=== PATIENT | male | born 1960 | race Two or more races ===

== ENCOUNTER 2018-04-09 15:29 | Emergency (ER) | payer SELFPAY ==
[~2018-04-09] VITALS: Ht 185.4 cm; Wt 123.8 kg
[2018-04-09 15:47] VITALS: BP 124/98
== END 2018-04-09 18:06 | disposition home or self-care (01) ==
LOC: ER 15:37
DX: M79.89 Other specified soft tissue disorders (principal); E11.9 Type 2 diabetes mellitus without complications; I50.9 Heart failure, unspecified
CPT/HCPCS: 93970

== ENCOUNTER 2018-04-26 12:30 | Inpatient (IN) | payer OTHER ==
[~2018-04-26] VITALS: Ht 185.4 cm; Wt 108.9 kg
[2018-04-26] MEDS ORDERED: DILTIAZEM HCL 25 MG/5 ML VIAL IV ONE (13:45)
[2018-04-26 14:02] LABS: Basophils # (auto) 0 uL; Basophils % (auto) 0.5 % (0.0-2.0); Eosinophils # (auto) 0.1 uL; Eosinophils % (auto) 0.9 % (0.0-7.0); Hemoglobin 15.7 g/dL (13.5-17.5); Lymphocytes # (auto) 3.3 uL; Lymphocytes % (auto) 34.5 % (10.0-50.0); Mean Corpuscular Hemoglobin 31.9 pg (28.0-32.0); Mean Corpuscular Hgb Conc. 32.8 g/dL (32.0-36.0); Mean Corpuscular Volume 97.3 fL (80.0-100.0); Monocytes # (auto) 0.8 uL; Monocytes % (auto) 8.5 % (0.0-12.0); Neutrophils # (auto) 5.3 uL; Neutrophils % (auto) 55.6 % (37.0-80.0); Platelet Count (auto) 195 10^3/uL (140-450); Red Blood Cells 4.94 10^6/uL (4.5-5.90); Red Cell Distribution Width 13.1 % (11.8-14.3); White Blood Cell 9.6 10^3/uL (4.4-10.8)
[2018-04-26 14:22] LABS: Calcium 7.8 mg/dL (8.5-10.1); Magnesium 2.2 mg/dL (1.6-2.6); Potassium 3.8 mmol/L (3.5-5.1)
[2018-04-26 14:23] LABS: BUN/Creatinine Ratio 21.2
[2018-04-26 14:39] LABS: Bilirubin, Total 0.7 mg/dL (0.2-1.0); Total Protein 6.7 g/dL (6.4-8.2)
[2018-04-26] MEDS ORDERED: FUROSEMIDE 40 MG/4 ML VIAL IV ONE (16:15)
[2018-04-26] MEDS ORDERED: DEXTROSE (50%) 50ML SYRG IV PRN (16:30)
[2018-04-26] MEDS ORDERED: NITROGLYCERIN 0.4 MG SL TAB SL PRN (16:30)
[2018-04-26] MEDS ORDERED: TEMAZEPAM 15 MG CAP PO PRN (16:30)
[2018-04-26] MEDS ORDERED: CARVEDILOL 3.125 MG TAB PO SCH (16:30)
[2018-04-26] MEDS ORDERED: LACTULOSE 20Gm/30ML SOLN PO PRN (16:30)
[2018-04-26] MEDS ORDERED: PROMETHAZINE HCL 25 MG/ML 1ML IV PRN (16:30)
[2018-04-26] MEDS ORDERED: LORazepam 0.5 MG TAB PO PRN (16:30)
[2018-04-26] MEDS ORDERED: ACETAMINOPHEN 500 MG TAB PO PRN (16:30)
[2018-04-26] MEDS ORDERED: MORPHINE SULFATE 4 MG/ML SYR/VIAL IV PRN (16:30)
[2018-04-26] MEDS: MORPHINE SULFATE 4 MG/ML SYR/VIAL IV PRN (17:54)
[2018-04-26] MEDS ORDERED: ALBUTEROL SULF 2.5 MG/0.5ML(0.5%) NEB SOLN NEB PRN (19:30)
[2018-04-26] MEDS ORDERED: CARVEDILOL 3.125 MG TAB PO ONE (19:30)
[2018-04-26] MEDS: ACCU-CHEK COMFORT CURVE STRIP VI SCH ×2 (19:47→23:49)
[2018-04-26 19:50] VITALS: BP 119/72
[2018-04-26] MEDS: InsuLIN REG 1unit/0.01ml Soln (100units/ml) SC SCH ×2 (19:54→23:49)
[2018-04-26] MEDS: CARVEDILOL 3.125 MG TAB PO SCH (21:22)
[2018-04-26] MEDS: ATORVASTATIN 20 MG TAB PO SCH (21:32)
[2018-04-26] MEDS: ENOXAPARIN SOD 120 MG/0.8 ML SYRINGE SC SCH (21:32)
[2018-04-26] MEDS: SODIUM CHLOR 0.9% PF (SALINE LOCK) 10ML VIAL/SYR IV SCH (21:32)
[2018-04-26] MEDS: CLINDAMYCIN 600MG IV 50 ML IV SCH (21:32)
[2018-04-26] MEDS: HYDROcodone-ACET 5/325MG TAB PO PRN (23:41)
[2018-04-27] MEDS: ALBUTEROL SULF 2.5 MG/0.5ML(0.5%) NEB SOLN NEB SCH ×4 (00:02→18:53)
[2018-04-27] MEDS: IPRATROPIUM BROM 0.5 MG/2.5ML INH SOL NEB SCH ×4 (00:02→18:53)
[2018-04-27] MEDS: ACCU-CHEK COMFORT CURVE STRIP VI SCH ×6 (04:05→23:45)
[2018-04-27] MEDS: InsuLIN REG 1unit/0.01ml Soln (100units/ml) SC SCH ×6 (04:06→23:45)
[2018-04-27 05:00] VITALS: BP 109/66
[2018-04-27] MEDS ORDERED: TRIA75TA55 PO (05:16)
[2018-04-27] MEDS ORDERED: DOXY-338 PO (05:16)
[2018-04-27] MEDS ORDERED: SITA50TA PO (05:16)
[2018-04-27] MEDS ORDERED: FLUT110A INH (05:16)
[2018-04-27] MEDS ORDERED: ALBU2TAB4 PO (05:17)
[2018-04-27] MEDS: SODIUM CHLOR 0.9% PF (SALINE LOCK) 10ML VIAL/SYR IV SCH ×3 (05:27→22:00)
[2018-04-27] MEDS: CLINDAMYCIN 600MG IV 50 ML IV SCH ×3 (05:39→22:00)
[2018-04-27 05:49] LABS: Cholesterol 106 mg/dL (< 200)
[2018-04-27 05:52] LABS: HDL Cholesterol 24 mg/dL (40-59); LDL Cholesterol 73 mg/dL (< 100); Triglycerides 101 mg/dL (< 150)
--- NOTE | 2018-04-27 07:00 | NUR ---
Telemetry admit from [facility] admitted to Telemetry unit. Patient oriented to Janee Easley, primary RN, unit, room, bed, and unit policies regarding patient care and visiting hours. Patient now on continuous telemetry monitoring, tele box #HC 30 and telemetry reading on arrival to unit is a.fib HR 110. Patient placed on bedside oxygen, weighed by bedscale and encouraged to call if they need something. All questions and concerns addressed, patient verbalized understanding. Note: alert and oriented x 4. on oxygen at 3L via NC,even and unlabored respirations. no s/s of distress. turns and ambulates independently. IV intact and patent. Noted redness to bilateral LE with open wound to right anterior leg. Will continue to monitor.
--- NOTE | 2018-04-27 07:00 | NUR ---
Closing Note patient resting in bed with even and unlabored respirations. oxygen on at 3L via NC. no s/s of distress. Endorsed care to day shift RN.
[2018-04-27] MEDS ORDERED: INFLUENZA QUAD 2018-2019 0.5 ML SYRG IM ONE (07:15)
[2018-04-27] MEDS ORDERED: PNEUMOCOCCAL VACC POLYS 25 MCG/0.5 ML VIAL IM ONE (07:15)
--- NOTE | 2018-04-27 08:05 | NUR ---
Opening Shift Note Assumed care of patient, awake and alert. No S/S of distress/SOB or pain. Instructed on POC and to call for assist PRN, bed in the lowest position, call light with in reach, bed rails up x2, will continue to monitor for changes Q1hr and PRN.
[2018-04-27 08:38] VITALS: BP 104/68
[2018-04-27] MEDS: ENOXAPARIN SOD 120 MG/0.8 ML SYRINGE SC SCH ×2 (09:29→22:01)
[2018-04-27] MEDS: HYDROcodone-ACET 5/325MG TAB PO PRN (09:29)
[2018-04-27] MEDS: POTASSIUM CHL 20 Meq TABLET PO SCH (09:29)
[2018-04-27] MEDS: FUROSEMIDE 40 MG/4 ML VIAL IV SCH (09:29)
[2018-04-27] MEDS: PANTOPRAZOLE 40 MG TAB PO SCH (09:30)
[2018-04-27] MEDS: CARVEDILOL 3.125 MG TAB PO SCH ×2 (09:30→22:01)
[2018-04-27] MEDS: ASPirin 81 mg TAB PO SCH (09:30)
[2018-04-27] MEDS: ENALAPRIL MALEATE 2.5 MG TAB PO SCH (09:31)
[2018-04-27] MEDS: NITROGLYCERIN 0.2MG/HR TOPICAL PATCH TD SCH (09:31)
[2018-04-27] MEDS: LEVOFLOXACIN 500MG 100 ML IV SCH (09:44)
--- NOTE | 2018-04-27 10:40 | NUR ---
Hospitalist at bedside Cristobal aware of patients status including abnormal labs, VS, cardiac rhythm. Awaiting new orders at this time. Will cont to monitor
[2018-04-27] MEDS ORDERED: BUDESONIDE (INHALATION) 0.5 MG/2 ML NEB NEB ONE (10:45)
[2018-04-27] MEDS ORDERED: BUDESONIDE (INHALATION) 0.5 MG/2 ML NEB ONE (10:57)
--- NOTE | 2018-04-27 11:15 | NUR ---
URINE SAMPLE SENT TO LAB
--- NOTE | 2018-04-27 11:15 | NUR ---
IV FOR CTA OF CHEST STARTED ON RIGHT FOREARM 20G. PATENT, INTACT AND FLUSHING. EDUCATION GIVEN
[2018-04-27] MEDS ORDERED: IOHEXOL 350 MG/ML 100ML IJ ONE (11:26)
[2018-04-27 11:58] LABS: Alcohol, Urine < 3.0 mg/dL (0-5); Amphetamine Screen, Urine NEGATIVE (NEGATIVE); Barbiturate Scree,Urine NEGATIVE (NEGATIVE); Benzodiazephine Screen, Urine NEGATIVE (NEGATIVE); Cannabinoid Screen, Urine NEGATIVE (NEGATIVE); Cocaine Screen, Urine NEGATIVE (NEGATIVE); Opiate Scree,Urine NEGATIVE (NEGATIVE); Phencyclidine Screen, Urine NEGATIVE (NEGATIVE)
--- NOTE | 2018-04-27 12:20 | NUR ---
WOUND CARE NOTE: Wound care in to see patient per wound care request regarding " open wound Rt anterior leg" that are noted present on admission. Bedside nurse took photograph of patient's wounds upon admission for reference. Patient is 57 y/o male with admitting diagnosis of CHF. Patient is resting in bed in Rm. 286B. Patient is awake, alert and oriented. Patient is in no stated pain at this time. He reported that he's ambulatory and he's self turn and reposition. His current Indra score is 22. Noted patient's Rt lower leg is erythremic and edematous in comparison to LLE. Dry, intact, scabbed wound noted to proximal benton which patient reported he "accidentally bumped it onto something" Distal aspect of his Rt benton has 3.5x3cm no measurable depth open draining wound with 50% has brown scab and 50% yellow slough, aroldo wound is bright red and edematous, moderate amount of serous drainage noted on old dressing, no odor noted. Patient states that he has had the Rt distal benton wound "since the april" and beth casey seen a doctor for it. Wound culture specimen apparently sent to lab for processing. Patient and family education regarding wound care, verbalized understanding. Cleansed patient's Rt benton wound with wound cleanser, patted dry with sterile gauze, applied Thera honey gel, covered with absorbent pad, wrapped with Kerlix, secured with tape. Wrapped RLE with JORGE LUIS Wrap bandage. Patient denies any other wound noted. Patient tolerated well. RECOMMENDATION: EOD/PRN dressing change to R benton wound per MD order,redistribute pressure points with pillows, elevate edematous extremity on pillows, continue monitoring by wound care while patient is hospitalized. Addendum: 04/27/18 at 1620 by Trixie Louis RN Amended: Links added.
[2018-04-27 13:00] VITALS: BP 125/66
[2018-04-27] MEDS: MORPHINE SULFATE 4 MG/ML SYR/VIAL IV PRN (16:13)
[2018-04-27 16:29] VITALS: BP 106/49
[2018-04-27] MEDS: BUDESONIDE (INHALATION) 0.5 MG/2 ML NEB NEB SCH (18:53)
--- NOTE | 2018-04-27 19:25 | NUR ---
Patient care endorsed endorsed care to pearl fraga. Patient sitting up in bed no s/s of acute distress. Pt denies pain. Call light within reach Addendum: 04/27/18 at 1935 by Zoe Costa RN care endorsed to Keyla fraga
--- NOTE | 2018-04-27 19:27 | NUR ---
RECEIVED PATIENT FROM DAY SHIFT RN. PATIENT SITTING AT THE EDGE OF THE BED. NO S/S OF DISTRESS NOTED. DENIED PAIN FOR NOW. REINFORCED PATIENT NPO AFTER MIDNIGHT FOR POSSIBLE PROCEDURE TOMORROW. POC INSTRUCTED AND ENCOURAGED PATIENT TO CALL FOR EPOXY SPECIALIST IF NEEDED. BED IN LOWEST POSITION WITH SIDE RAILS UPX 2. CALL ZAMBRANO WITHIN REACH. CONTINUE TO MONITOR FOR CHANGES Q1H AND PRN.
--- NOTE | 2018-04-27 20:05 | NUR ---
ACCU-CHECK, BS 102. NO COVERAGE. CONTINUE TO MONITOR.
[2018-04-27 22:01] VITALS: BP 123/63
[2018-04-27] MEDS: ATORVASTATIN 20 MG TAB PO SCH (22:01)
--- NOTE | 2018-04-27 23:05 | NUR ---
REASSESSED BP 119/71, HR 136. CONTINUE TO MONITOR.
[2018-04-27] MEDS: INSULIN LANTUS (GLARGINE) 1 /0.01ml (100units/ml) SC SCH (23:45)
[2018-04-28] MEDS: MORPHINE SULFATE 4 MG/ML SYR/VIAL IV PRN ×3 (00:04→21:45)
--- NOTE | 2018-04-28 00:04 | NUR ---
PATIENT C/O PAIN @ 12/13. MEDICATED PATIENT ORDERED. CONTINUE TO MONITOR.
[2018-04-28] MEDS: IPRATROPIUM BROM 0.5 MG/2.5ML INH SOL NEB SCH ×4 (01:43→18:38)
[2018-04-28] MEDS: ALBUTEROL SULF 2.5 MG/0.5ML(0.5%) NEB SOLN NEB SCH ×4 (01:43→18:39)
--- NOTE | 2018-04-28 02:36 | NUR ---
PATIENT WENT TO BATHROOM, HR UP TO 155, CHECKED PATIENT. NO S/S OF DISTRESS AND SOB NOTED. PATIENT STATED COMFORTABLE. CONTINUE TO MONITOR.
[2018-04-28] MEDS: InsuLIN REG 1unit/0.01ml Soln (100units/ml) SC SCH ×5 (03:36→20:06)
[2018-04-28] MEDS: ACCU-CHEK COMFORT CURVE STRIP VI SCH ×5 (03:36→20:05)
--- NOTE | 2018-04-28 03:36 | NUR ---
ACCU-CHECK, BS 116. NO COVERAGE. CONTINUE TO MONITOR.
[2018-04-28 05:00] VITALS: BP 106/67
[2018-04-28] MEDS: SODIUM CHLOR 0.9% PF (SALINE LOCK) 10ML VIAL/SYR IV SCH ×3 (06:17→21:44)
[2018-04-28] MEDS: CLINDAMYCIN 600MG IV 50 ML IV SCH ×3 (06:17→21:44)
[2018-04-28] MEDS: BUDESONIDE (INHALATION) 0.5 MG/2 ML NEB NEB SCH ×2 (06:21→18:39)
[2018-04-28 07:33] LABS: BUN/Creatinine Ratio 29.8; Calcium 7.9 mg/dL (8.5-10.1); Potassium 4.3 mmol/L (3.5-5.1)
[2018-04-28 09:00] VITALS: BP 110/68
[2018-04-28] MEDS: NITROGLYCERIN 0.2MG/HR TOPICAL PATCH TD SCH (10:00)
[2018-04-28] MEDS: FUROSEMIDE 40 MG/4 ML VIAL IV SCH (10:23)
[2018-04-28] MEDS: CARVEDILOL 3.125 MG TAB PO SCH ×2 (10:24→21:44)
[2018-04-28] MEDS: POTASSIUM CHL 20 Meq TABLET PO SCH (10:24)
[2018-04-28] MEDS: ASPirin 81 mg TAB PO SCH (10:24)
[2018-04-28] MEDS: ENOXAPARIN SOD 120 MG/0.8 ML SYRINGE SC SCH ×2 (10:25→21:45)
[2018-04-28] MEDS: PANTOPRAZOLE 40 MG TAB PO SCH (10:25)
[2018-04-28] MEDS: ENALAPRIL MALEATE 2.5 MG TAB PO SCH (10:26)
[2018-04-28] MEDS: HYDROcodone-ACET 5/325MG TAB PO PRN (10:33)
[2018-04-28] MEDS: LEVOFLOXACIN 500MG 100 ML IV SCH (11:50)
[2018-04-28 13:00] VITALS: BP 98/77
--- NOTE | 2018-04-28 19:26 | NUR ---
RECEIVED PATIENT FROM DAY SHIFT RN. PATIENT RESTING IN BED. NO S/S OF DISTRESS NOTED. C/O PAIN @ 5/10 AFTER RECEIVING PAIN MEDICATION EARLIER. REINFORCED SCHEDULED OF PAIN MANAGEMENT, WILL COME BACK FOR PAIN MEDICATION WHEN THE TIME IS DUE. PATIENT VERBALIZED UNDERSTANDING. POC INSTRUCTED AND ENCOURAGED PATIENT TO CALL FOR BUILDING OPERATOR IF NEEDED. BED IN LOWEST POSITION WITH SIDE RAILS UPX 2. CALL ZAMBRANO WITHIN REACH. CONTINUE TO MONITOR FOR CHANGES Q1H AND PRN.
--- NOTE | 2018-04-28 20:06 | NUR ---
ACCU-CHECK, BS 173. INSULIN GIVEN ORDERED. URINE SAMPLE COLLECTED AND SENT. CONTINUE TO MONITOR.
[2018-04-28 20:33] LABS: Urine Bacteria NONE SEEN /hpf (None Seen); Urine Blood Negative /uL (Negative); Urine Specific Gravity 1.022 (1.001-1.035); Urine WBC 1 /hpf (0 - 3)
[2018-04-28] MEDS: ATORVASTATIN 20 MG TAB PO SCH (21:45)
--- NOTE | 2018-04-28 21:45 | NUR ---
PATIENT C/O PAIN @ 12/13. MEDICATED PATIENT ORDERED. CONTINUE TO MONITOR.
[2018-04-28 21:56] VITALS: BP 109/64
[2018-04-29] MEDS: ALBUTEROL SULF 2.5 MG/0.5ML(0.5%) NEB SOLN NEB SCH ×4 (00:05→19:10)
[2018-04-29] MEDS: IPRATROPIUM BROM 0.5 MG/2.5ML INH SOL NEB SCH ×4 (00:05→19:10)
[2018-04-29] MEDS: InsuLIN REG 1unit/0.01ml Soln (100units/ml) SC SCH ×7 (00:17→23:17)
[2018-04-29] MEDS: ACCU-CHEK COMFORT CURVE STRIP VI SCH ×7 (00:17→23:17)
[2018-04-29] MEDS: INSULIN LANTUS (GLARGINE) 1 /0.01ml (100units/ml) SC SCH ×2 (00:17→23:16)
--- NOTE | 2018-04-29 00:17 | NUR ---
ACCU-CHECK, BS 143. INSULIN GIVEN ORDERED. CONTINUE TO MONITOR.
--- NOTE | 2018-04-29 02:20 | NUR ---
PATIENT WAS FOUND SITTING ON THE CHAIR AND FALLING IN SLEEP WITHOUT OXYGEN. WOKE PATIENT UP AND ASSISTED PATIENT BACK TO BED. PUT OXYGEN BACK. PATIENT TOLERATED WELL. CONTINUE TO MONITOR.
[2018-04-29] MEDS: MORPHINE SULFATE 4 MG/ML SYR/VIAL IV PRN ×5 (04:20→23:16)
--- NOTE | 2018-04-29 04:20 | NUR ---
ACCU-CHECK, BS 202. INSULIN GIVEN ORDERED. MEDICATED PATIENT FOR PAIN @ 12/13. CONTINUE TO MONITOR.
[2018-04-29 05:02] VITALS: BP 100/58
[2018-04-29] MEDS: CLINDAMYCIN 600MG IV 50 ML IV SCH ×2 (05:58→13:57)
[2018-04-29] MEDS: SODIUM CHLOR 0.9% PF (SALINE LOCK) 10ML VIAL/SYR IV SCH ×3 (05:58→21:53)
[2018-04-29 06:21] LABS: Calcium 7.7 mg/dL (8.5-10.1); Potassium 4.3 mmol/L (3.5-5.1)
[2018-04-29 06:25] LABS: BUN/Creatinine Ratio 34.7
[2018-04-29] MEDS: BUDESONIDE (INHALATION) 0.5 MG/2 ML NEB NEB SCH ×2 (07:26→19:10)
--- NOTE | 2018-04-29 07:30 | NUR ---
Report received. Patient sitting at side of bed. Patient is alert and oriented. O2 in place. Patient has no complaints at this time. Call light in reach. Will continue to monitor.
[2018-04-29] MEDS: FUROSEMIDE 40 MG/4 ML VIAL IV SCH (09:53)
[2018-04-29] MEDS: CARVEDILOL 3.125 MG TAB PO SCH ×2 (09:55→21:53)
[2018-04-29] MEDS: ASPirin 81 mg TAB PO SCH (09:56)
[2018-04-29] MEDS: ENOXAPARIN SOD 120 MG/0.8 ML SYRINGE SC SCH ×2 (09:56→21:54)
[2018-04-29] MEDS: POTASSIUM CHL 20 Meq TABLET PO SCH (09:56)
[2018-04-29] MEDS: PANTOPRAZOLE 40 MG TAB PO SCH (09:56)
[2018-04-29] MEDS: NITROGLYCERIN 0.2MG/HR TOPICAL PATCH TD SCH (09:57)
[2018-04-29] MEDS: LEVOFLOXACIN 500MG 100 ML IV SCH (09:58)
[2018-04-29] MEDS: ENALAPRIL MALEATE 2.5 MG TAB PO SCH (09:58)
--- NOTE | 2018-04-29 11:55 | NUR ---
Dr. Cristobal in to see patient as hospitalist.
[2018-04-29] MEDS ORDERED: METOLAZONE 5 MG TAB PO ONE (12:00)
[2018-04-29] MEDS ORDERED: POTASSIUM CHL 20 Meq TABLET PO ONE (12:00)
[2018-04-29 12:47] VITALS: BP 100/58
--- NOTE | 2018-04-29 16:24 | NUR ---
Pharmacist recommending change in antibiotics. Dr. Cristobal informed.
[2018-04-29] MEDS ORDERED: MORPHINE SULFATE 4 MG/ML SYR/VIAL IV PRN (16:30)
--- NOTE | 2018-04-29 19:50 | NUR ---
RECEIVED PATIENT FROM DAY SHIFT RN. PATIENT RESTING IN BED. NO S/S OF DISTRESS NOTED. DENIED PAIN FOR NOW. ACCU-CHECK, BS 196. INSULIN GIVEN ORDERED. REINFORCED PATIENT NPO AFTER MIDNIGHT FOR PROCEDURE TOMORROW. PATIENT VERBALIZED UNDERSTANDING. POC INSTRUCTED AND ENCOURAGED PATIENT TO CALL FOR SUBSTATION OPERATOR CONVERSION IF NEEDED. BED IN LOWEST POSITION WITH SIDE RAILS UPX 2. CALL ZAMBRANO WITHIN REACH. CONTINUE TO MONITOR FOR CHANGES Q1H AND PRN.
[2018-04-29] MEDS: ATORVASTATIN 20 MG TAB PO SCH (21:53)
--- NOTE | 2018-04-29 21:55 | NUR ---
PATIENT LYING IN BED. BP 91/54, ASSISTED PATIENT TO SIT UP AND REASSESSED BP 126/63, HR 97. SCHEDULED MEDICATION GIVEN ORDERED. CONTINUE TO MONITOR.
[2018-04-29 21:59] VITALS: BP 126/63
--- NOTE | 2018-04-29 23:17 | NUR ---
ACCU-CHECK, BS 171. INSULIN GIVEN ORDERED. CONTINUE TO MONITOR.
[2018-04-30] VITALS (7 sets, daily range): BP systolic 101–139; BP diastolic 70–81
[2018-04-30] MEDS: IPRATROPIUM BROM 0.5 MG/2.5ML INH SOL NEB SCH ×4 (00:16→19:06)
[2018-04-30] MEDS: ALBUTEROL SULF 2.5 MG/0.5ML(0.5%) NEB SOLN NEB SCH ×4 (00:16→19:07)
--- NOTE | 2018-04-30 00:30 | NUR ---
PATIENT SITTING AT THE SIDE OF THE BED. NO S/S OF DISTRESS NOTED. REINFORCED NPO FROM NOW. PATIENT VERBALIZED UNDERSTANDING. CONTINUE TO MONITOR.
[2018-04-30] MEDS: InsuLIN REG 1unit/0.01ml Soln (100units/ml) SC SCH ×5 (04:30→20:00)
[2018-04-30] MEDS: ACCU-CHEK COMFORT CURVE STRIP VI SCH ×5 (04:30→20:00)
--- NOTE | 2018-04-30 04:30 | NUR ---
ACCU-CHECK, BS 121. NO COVERAGE. CONTINUE TO MONITOR.
--- NOTE | 2018-04-30 04:43 | NUR ---
EKG DONE ORDERED. PATIENT TOLERATED WELL. CONTINUE CARE.
[2018-04-30] MEDS: MORPHINE SULFATE 4 MG/ML SYR/VIAL IV PRN ×3 (05:04→22:18)
[2018-04-30] MEDS: SODIUM CHLOR 0.9% PF (SALINE LOCK) 10ML VIAL/SYR IV SCH ×3 (05:04→21:55)
[2018-04-30] MEDS: BUDESONIDE (INHALATION) 0.5 MG/2 ML NEB NEB SCH ×2 (05:59→19:07)
[2018-04-30 06:15] LABS: BUN/Creatinine Ratio 28.3; Calcium 7.9 mg/dL (8.5-10.1)
[2018-04-30] MEDS ORDERED: ADENOSINE 91 MG in GIVE UN-DILUTED 0 ML IV STA ×2 (08:23→08:25)
[2018-04-30] MEDS: ENALAPRIL MALEATE 2.5 MG TAB PO SCH (10:00)
[2018-04-30] MEDS: CARVEDILOL 3.125 MG TAB PO SCH ×2 (10:00→22:11)
--- NOTE | 2018-04-30 10:00 | NUR ---
PATIENT WAS FOUND ALERT AND ORIENTED X4. PATIENT REPORTED THAT HIS PAIN WAS 10 IN A SCALE FR3OM 0 TO 10. MEDICATIONS WERE ADMINISTERED.
[2018-04-30] MEDS: ENOXAPARIN SOD 120 MG/0.8 ML SYRINGE SC SCH ×2 (10:18→21:56)
[2018-04-30] MEDS: PANTOPRAZOLE 40 MG TAB PO SCH (10:19)
[2018-04-30] MEDS: HYDROcodone-ACET 5/325MG TAB PO PRN (10:20)
[2018-04-30] MEDS: ASPirin 81 mg TAB PO SCH (10:20)
[2018-04-30] MEDS: LEVOFLOXACIN 500MG 100 ML IV SCH (10:21)
--- NOTE | 2018-04-30 12:46 | NUR ---
PATIENT WAS PREPARED TO GO TO SAP SD ANALYST. Addendum: 04/30/18 at 1251 by Nancy Fontaine RN PATIENT WAS FOUND ALERT AND ORIENTED X4. ASSESSMENT WAS PERFORMED.
--- NOTE | 2018-04-30 14:44 | NUR ---
NUTRITION ASSESSMENT NOTES Please refer to link notes of nutrition screen form filed under the intervention section of the plan of care for further details. Est. Needs: 2150 kcal to 2700 kcal (20-25 kcal/kgBW), 87 gms to 109 gms pro (0.8-1.0 gms/kgBW). Will continue to monitor pertinent labs and reassess nutrient need prn Thank you. Addendum: 04/30/18 at [address] Amended: Links added.
--- NOTE | 2018-04-30 19:35 | NUR ---
Opening Shift Note Assumed care of patient, awake and alert, ambulatory. SOB with light activity. Dressing to right leg dry and intact. Maintained on O2 at 3 Lpm/NC. Updated on POC and to call for assist PRN, patient verbalized understanding, call light within reach, will continue to monitor for changes Q1hr and PRN.
[2018-04-30] MEDS: POTASSIUM CHL 20 Meq TABLET PO SCH (21:54)
[2018-04-30] MEDS: ATORVASTATIN 20 MG TAB PO SCH (21:55)
[2018-04-30] MEDS: FUROSEMIDE 40 MG/4 ML VIAL IV SCH (22:00)
[2018-04-30] MEDS: INSULIN LANTUS (GLARGINE) 1 /0.01ml (100units/ml) SC SCH (22:21)
[2018-05-01] MEDS: ALBUTEROL SULF 2.5 MG/0.5ML(0.5%) NEB SOLN NEB SCH ×3 (00:18→13:27)
[2018-05-01] MEDS: IPRATROPIUM BROM 0.5 MG/2.5ML INH SOL NEB SCH ×3 (00:18→13:26)
[2018-05-01] MEDS: InsuLIN REG 1unit/0.01ml Soln (100units/ml) SC SCH ×5 (00:58→16:00)
[2018-05-01] MEDS: ACCU-CHEK COMFORT CURVE STRIP VI SCH ×5 (00:58→16:00)
[2018-05-01 05:00] VITALS: BP 99/66
[2018-05-01 05:47] LABS: BUN/Creatinine Ratio 21.2; Calcium 7.7 mg/dL (8.5-10.1)
[2018-05-01] MEDS: SODIUM CHLOR 0.9% PF (SALINE LOCK) 10ML VIAL/SYR IV SCH ×2 (06:22→13:29)
--- NOTE | 2018-05-01 07:00 | NUR ---
Opening Shift Note Assumed care of patient, awake and alert. No S/S of distress/SOB or pain. Instructed on POC and to call for assist PRN, will continue to monitor for changes Q1hr and PRN.
[2018-05-01] MEDS: BUDESONIDE (INHALATION) 0.5 MG/2 ML NEB NEB SCH (08:14)
[2018-05-01] MEDS: HYDROcodone-ACET 5/325MG TAB PO PRN (08:32)
[2018-05-01 09:04] VITALS: BP 99/74
[2018-05-01] MEDS: FUROSEMIDE 40 MG/4 ML VIAL IV SCH (09:10)
[2018-05-01] MEDS: LEVOFLOXACIN 500MG 100 ML IV SCH (09:10)
[2018-05-01] MEDS: ASPirin 81 mg TAB PO SCH (09:10)
[2018-05-01] MEDS: POTASSIUM CHL 20 Meq TABLET PO SCH (09:11)
[2018-05-01] MEDS: PANTOPRAZOLE 40 MG TAB PO SCH (09:11)
[2018-05-01] MEDS: CARVEDILOL 3.125 MG TAB PO SCH (09:11)
[2018-05-01] MEDS: ENALAPRIL MALEATE 2.5 MG TAB PO SCH (09:12)
[2018-05-01] MEDS ORDERED: APIXABAN 5 MG TAB PO SCH (10:00)
[2018-05-01] MEDS: MORPHINE SULFATE 4 MG/ML SYR/VIAL IV PRN ×2 (10:07→15:12)
[2018-05-01] MEDS ORDERED: ASPI81CH43 PO (11:02)
[2018-05-01] MEDS ORDERED: CAR3125T PO ×2 (11:02→11:05)
[2018-05-01] MEDS ORDERED: POTA20TA53 PO (11:02)
[2018-05-01] MEDS ORDERED: APIX5TAB PO (11:02)
[2018-05-01] MEDS ORDERED: ENA2.5T PO (11:02)
[2018-05-01] MEDS ORDERED: LEVO-28 PO (11:02)
[2018-05-01] MEDS ORDERED: FURO40TA4 PO (11:02)
[2018-05-01] MEDS ORDERED: ATOR20TA50 PO (11:02)
--- NOTE | 2018-05-01 11:17 | NUR ---
checked 02 saturation on room air patient is at 87%
[2018-05-01 12:46] VITALS: BP 90/72
--- NOTE | 2018-05-01 13:35 | NUR ---
PER [facility] AT [address] PATIENT DOES NOT HAVE BENIFETS FOR ANYTHING OUTSIDE OF THE HOSPITAL. OXYGEN IS NOT A COVERED BENEFIT. WILL ADVISE OMID IN ROVING SIZER TO SPEAK WITH PATIENT.
--- NOTE | 2018-05-01 15:15 | NUR ---
ORDER AND CLINICALS FAXED TO [facility] REQUESTING HOME OXYGEN. PATIENT'S INSURANCE DOES NOT COVER THE OXYGEN. [facility] WILL ACCEPT PRIVATE PAY. PHONE NUMBER [phone]. FAX [phone].
[2018-05-01 15:36] VITALS: BP 99/74
[2018-05-01] MEDS ORDERED: AMOX500C2 PO (15:43)
--- NOTE | 2018-05-01 18:30 | NUR ---
Discharge instructions given as ordered. Encourage to follow up with PMD as instructed. All questions and concerns addressed. Patient verbalized understanding. Medication reconciliation form completed and copy given to patient. IV removed with catheter intact, pressure dressing applied, telemetry unit returned to ICU. Patient taken to vehicle via wheelchair with all personal belongings, accompanied by staff and family member. No distress noted at time of departure.
== END 2018-05-01 18:28 | disposition home or self-care (01) | DRG 291 ==
LOC: ER 12:32 → TELE 16:25 → TELE-WESTW 22:20
PROVIDERS: ADMIT Internal Medicine; ATTEND Internal Medicine
DX: I11.0 Hypertensive heart disease with heart failure (principal); J18.9 Pneumonia, unspecified organism; J96.00 Acute respiratory failure, unspecified whether with hypoxia or hypercapnia; J44.1 Chronic obstructive pulmonary disease with (acute) exacerbation; L03.115 Cellulitis of right lower limb; I50.43 Acute on chronic combined systolic (congestive) and diastolic (congestive) heart failure; I42.9 Cardiomyopathy, unspecified; I48.91 Unspecified atrial fibrillation; E11.65 Type 2 diabetes mellitus with hyperglycemia; E78.5 Hyperlipidemia, unspecified; F17.200 Nicotine dependence, unspecified, uncomplicated; E66.01 Morbid (severe) obesity due to excess calories; Z79.899 Other long term (current) drug therapy; Z68.31 Body mass index [BMI] 31.0-31.9, adult
CPT/HCPCS: 36415; 36600; 71045; 71275; 80048; 80053; 80061; 80307; 81001; 82550; 82805; 82962; 83036; 83735; 83880; 84443; 84484; 85025; 85379; 85652; 86141; 87077; 87081; 87186; 87205; 90674; 93005; 93017; 93306; 94640; 94761; 96365; 96375; 99291; G0378; J0153; J1815; J1956; J3490

== ENCOUNTER 2020-02-24 13:59 | Inpatient (IN) | payer OTHER ==
[~2020-02-24] VITALS: Ht 182.9 cm; Wt 118.7 kg
[~2020-02-24 13:59] MED LIST: ALBU2TAB4 PO; AMOX500C2 PO; APIX5TAB PO; ATOR20TA50 PO; CAR3125T PO; ENAL2.5T11 PO; FLUT110A INH; FURO40TA4 PO; LEVO-28 PO; POTA-220 PO; SITA50TA PO
[2020-02-24 19:20] LABS: Eosinophils # (auto) 0.1 10 ^3/uL (0-0.8); Lymphocytes # (auto) 2.3 10 ^3/uL (0.4-5.4); Red Cell Distribution Width 17.8 % (11.8-14.3)
[2020-02-24 19:22] LABS: Basophils # (auto) 0.1 10 ^3/uL (0-0.2); Basophils % (auto) 1.2 % (0.0-2.0); Eosinophils % (auto) 0.7 % (0.0-7.0); Hematocrit 20.9 % (41.0-53.0); Lymphocytes % (auto) 23.2 % (10.0-50.0); Mean Corpuscular Hemoglobin 29.9 pg (28.0-32.0); Mean Corpuscular Hgb Conc. 29.6 g/dL (32.0-36.0); Monocytes # (auto) 0.8 10 ^3/uL (0-1.3); Monocytes % (auto) 7.8 % (0.0-12.0); Neutrophils # (auto) 6.5 10 ^3/uL (1.6-8.6); Neutrophils % (auto) 67.1 % (37.0-80.0); Nucleated Red Blood Cells % 0.2 %; Red Blood Cells 2.07 10^6/uL (4.5-5.90); White Blood Cell 9.7 10^3/uL (4.4-10.8)
[2020-02-24 19:31] LABS: INR 0.92 (0.9-1.15)
[2020-02-24 19:37] LABS: Albumin 3.1 g/dL (3.4-5.0); Anion Gap 9 (5-15); Blood Urea Nitrogen 26 mg/dL (7-18); Calcium 8.6 mg/dL (8.5-10.1); Carbon Dioxide 24 mmol/L (21-32); Chloride 101 mmol/L (98-107); Glucose 341 mg/dL (74-106); Magnesium 2.6 mg/dL (1.6-2.6); Potassium 3.5 mmol/L (3.5-5.1); Sodium 134 mmol/L (136-145)
[2020-02-24 19:43] LABS: Alanine Aminotransferase 26 U/L (16-61); Alkaline Phosphatase 143 U/L (45-117); Aspartate Aminotransferase 8 U/L (15-37); Bilirubin, Total 0.2 mg/dL (0.2-1.0); GFR African American 82 mL/min; GFR Non-African American 67 mL/min; Total Protein 7.2 g/dL (6.4-8.2)
[2020-02-24 20:40] LABS: Platelet Count (auto) 46 10^3/uL (140-450)
[2020-02-24 20:51] LABS: Hemoglobin 6.2 g/dL (13.5-17.5)
[2020-02-24] MEDS ORDERED: PANTOPRAZOLE 40 MG/10 ML VIAL INJ IV ONE (22:00)
[2020-02-24] MEDS ORDERED: MORPHINE SULF INJ 2 MG/ML SYRINGE 1ML IV PRN (22:30)
[2020-02-24] MEDS ORDERED: ONDANSETRON HCL 4 MG/2 ML VIAL IV PRN (22:30)
[2020-02-24] MEDS ORDERED: DEXTROSE (50%) 50ML SYRG IV PRN (22:30)
[2020-02-24] MEDS ORDERED: NITROGLYCERIN 0.4 MG SL TAB SL PRN (22:30)
[2020-02-25] MEDS: SODIUM CHLORIDE 0.9% 1,000 ML IV SCH ×3 (01:29→23:08)
[2020-02-25] MEDS: ACCU-CHEK COMFORT CURVE STRIP VI SCH ×5 (02:17→23:16)
[2020-02-25] MEDS: InsuLIN REG 1unit/0.01ml Soln (100units/ml) SC SCH ×5 (02:18→23:16)
[2020-02-25] MEDS ORDERED: LACTATED RINGER'S 500 ML IV ONE (06:30)
[2020-02-25 07:54] LABS: Basophils # (auto) 0.1 10 ^3/uL (0-0.2); Basophils % (auto) 0.9 % (0.0-2.0); Eosinophils # (auto) 0.2 10 ^3/uL (0-0.8); Hematocrit 16.8 % (41.0-53.0); Lymphocytes # (auto) 1.9 10 ^3/uL (0.4-5.4); Neutrophils # (auto) 4.5 10 ^3/uL (1.6-8.6); Nucleated Red Blood Cells % 0.4 %
[2020-02-25 07:56] LABS: Eosinophils % (auto) 2.7 % (0.0-7.0); Lymphocytes % (auto) 25.9 % (10.0-50.0); Mean Corpuscular Hemoglobin 29.6 pg (28.0-32.0); Mean Corpuscular Hgb Conc. 29.9 g/dL (32.0-36.0); Monocytes # (auto) 0.7 10 ^3/uL (0-1.3); Monocytes % (auto) 9.9 % (0.0-12.0); Neutrophils % (auto) 60.6 % (37.0-80.0); Red Cell Distribution Width 18.2 % (11.8-14.3); White Blood Cell 7.4 10^3/uL (4.4-10.8)
[2020-02-25 08:15] LABS: Potassium 3.8 mmol/L (3.5-5.1)
[2020-02-25 08:25] LABS: Albumin 2.2 g/dL (3.4-5.0); BUN/Creatinine Ratio 21.2; Bilirubin, Total 0.2 mg/dL (0.2-1.0); Calcium 7.6 mg/dL (8.5-10.1); Total Protein 5.3 g/dL (6.4-8.2)
[2020-02-25 10:11] LABS: Platelet Count (auto) 36 10^3/uL (140-450)
[2020-02-25] MEDS: PANTOPRAZOLE 40 MG/10 ML VIAL INJ IV SCH ×2 (10:40→21:38)
[2020-02-26] MEDS: ACCU-CHEK COMFORT CURVE STRIP VI SCH ×3 (06:19→17:40)
[2020-02-26] MEDS: InsuLIN REG 1unit/0.01ml Soln (100units/ml) SC SCH ×2 (06:20→17:42)
[2020-02-26 09:45] LABS: Basophils # (auto) 0.1 10 ^3/uL (0-0.2); Eosinophils # (auto) 0.2 10 ^3/uL (0-0.8); Lymphocytes # (auto) 1.5 10 ^3/uL (0.4-5.4); Monocytes # (auto) 0.8 10 ^3/uL (0-1.3)
[2020-02-26 09:47] LABS: Basophils % (auto) 1.1 % (0.0-2.0); Eosinophils % (auto) 2.9 % (0.0-7.0); Hematocrit 16.7 % (41.0-53.0); Lymphocytes % (auto) 22.2 % (10.0-50.0); Mean Corpuscular Hemoglobin 28.7 pg (28.0-32.0); Mean Corpuscular Hgb Conc. 29.8 g/dL (32.0-36.0); Mean Corpuscular Volume 96.2 fL (80.0-100.0); Monocytes % (auto) 11.9 % (0.0-12.0); Neutrophils # (auto) 4.2 10 ^3/uL (1.6-8.6); Neutrophils % (auto) 61.9 % (37.0-80.0); Nucleated Red Blood Cells % 0.1 %; Platelet Count (auto) 45 10^3/uL (140-450); Red Blood Cells 1.74 10^6/uL (4.5-5.90); Red Cell Distribution Width 19.9 % (11.8-14.3); White Blood Cell 6.8 10^3/uL (4.4-10.8)
[2020-02-26] MEDS ORDERED: SODIUM FERR GLUC 62.5MG/5ML 125 MG in SODIUM CHL 0.9% 100 ML IV ONE (11:15)
[2020-02-26] MEDS: SODIUM CHLORIDE 0.9% 1,000 ML IV SCH (12:00)
[2020-02-26] MEDS: PANTOPRAZOLE 40 MG/10 ML VIAL INJ IV SCH ×2 (13:06→22:18)
[2020-02-26] MEDS ORDERED: diphenhdrAMINE HCL 50 MG/1 ML VL ONE (14:14)
[2020-02-26] MEDS ORDERED: LIDOCAINE VISCOUS 2% 15ML UD ONE (14:15)
[2020-02-26] MEDS: MIDAZOLAM HCL 5 MG/ML-1ML VIAL ONE ×2 (14:28→14:31)
[2020-02-26] MEDS: fentaNYL CITRATE 100 MCG/2 ML VL ONE ×2 (14:28→14:31)
[2020-02-26 17:27] VITALS: BP 104/64
[2020-02-26] MEDS: SUCRALFATE 1 GM/10 ML ORAL SUSP PO SCH ×2 (17:40→22:18)
[2020-02-26] MEDS ORDERED: INFLUENZA QUAD 2020-2021 0.5 ML SYRG IM ONE (18:00)
[2020-02-26] MEDS ORDERED: ALBUTEROL SULF 2.5 MG/0.5ML(0.5%) NEB SOLN NEB PRN (21:00)
[2020-02-26 21:10] VITALS: BP 135/97
[2020-02-26 21:25] VITALS: BP 100/65
[2020-02-26] MEDS: FERROUS SULFATE 325 MG TAB PO SCH (22:18)
[2020-02-27] MEDS: ACCU-CHEK COMFORT CURVE STRIP VI SCH ×3 (00:41→11:23)
[2020-02-27] MEDS: SODIUM CHLORIDE 0.9% 1,000 ML IV SCH ×2 (00:41→13:00)
[2020-02-27 05:10] VITALS: BP 94/52
[2020-02-27 05:58] LABS: Hematocrit 16.2 % (41.0-53.0); Lymphocytes # (auto) 1.9 10 ^3/uL (0.4-5.4); Monocytes # (auto) 0.8 10 ^3/uL (0-1.3); Red Blood Cells 1.71 10^6/uL (4.5-5.90)
[2020-02-27 06:01] LABS: Basophils # (auto) 0.1 10 ^3/uL (0-0.2); Basophils % (auto) 1.7 % (0.0-2.0); Eosinophils # (auto) 0.2 10 ^3/uL (0-0.8); Eosinophils % (auto) 2.6 % (0.0-7.0); Lymphocytes % (auto) 27.6 % (10.0-50.0); Mean Corpuscular Hemoglobin 28.2 pg (28.0-32.0); Mean Corpuscular Hgb Conc. 29.8 g/dL (32.0-36.0); Mean Corpuscular Volume 94.7 fL (80.0-100.0); Monocytes % (auto) 11.7 % (0.0-12.0); Neutrophils # (auto) 3.8 10 ^3/uL (1.6-8.6); Neutrophils % (auto) 56.4 % (37.0-80.0); Nucleated Red Blood Cells % 0.2 %; Platelet Count (auto) 40 10^3/uL (140-450); White Blood Cell 6.8 10^3/uL (4.4-10.8)
[2020-02-27 06:12] LABS: Red Cell Distribution Width 21.7 % (11.8-14.3)
[2020-02-27 06:14] LABS: Hemoglobin 4.8 g/dL (13.5-17.5)
[2020-02-27] MEDS: SUCRALFATE 1 GM/10 ML ORAL SUSP PO SCH ×2 (06:20→11:44)
[2020-02-27] MEDS: InsuLIN REG 1unit/0.01ml Soln (100units/ml) SC SCH ×3 (06:26→11:45)
[2020-02-27] MEDS: FERROUS SULFATE 325 MG TAB PO SCH ×2 (07:42→11:44)
[2020-02-27 08:45] VITALS: BP 112/52
[2020-02-27] MEDS: PANTOPRAZOLE 40 MG/10 ML VIAL INJ IV SCH (10:00)
[2020-02-27 12:35] VITALS: BP 112/72
[2020-02-27 12:54] VITALS: BP 112/72
== END 2020-02-27 13:42 | disposition home or self-care (01) | DRG 382 ==
LOC: ER 13:59 → TELE 14:00 → TELE-CENTR 02-26 17:10
PROVIDERS: ADMIT Nurse Practitioner; ATTEND Internal Medicine
PROC: 0DB68ZX Excision of Stomach, Via Natural or Artificial Opening Endoscopic, Diagnostic (ICD-10-PCS; 2020-02-26)
PROC: 0DB88ZX Excision of Small Intestine, Via Natural or Artificial Opening Endoscopic, Diagnostic (ICD-10-PCS; principal; 2020-02-26 14:32)
DX: K22.11 Ulcer of esophagus with bleeding (principal); D69.6 Thrombocytopenia, unspecified; E11.9 Type 2 diabetes mellitus without complications; Z20.828 Contact with and (suspected) exposure to other viral communicable diseases; E66.9 Obesity, unspecified; I50.9 Heart failure, unspecified; J44.9 Chronic obstructive pulmonary disease, unspecified; K31.9 Disease of stomach and duodenum, unspecified; K29.71 Gastritis, unspecified, with bleeding; K29.81 Duodenitis with bleeding; K44.9 Diaphragmatic hernia without obstruction or gangrene; Z53.1 Procedure and treatment not carried out because of patient's decision for reasons of belief and group pressure; D50.0 Iron deficiency anemia secondary to blood loss (chronic); Z68.35 Body mass index [BMI] 35.0-35.9, adult; Z79.899 Other long term (current) drug therapy; Z88.8 Allergy status to other drugs, medicaments and biological substances
CPT/HCPCS: 36415; 70450; 71045; 74176; 80053; 82962; 83735; 83880; 84484; 85025; 85610; 86850; 86900; 86901; 86920; 87040; 87426; 94640; C9113; G0378; J1815; J2250